=== PATIENT | female | born 1975 | race Caucasian/White ===

== ENCOUNTER 2018-11-07 09:18 | Emergency (ER) | payer OTHER ==
[~2018-11-07] VITALS: Ht 147.3 cm; Wt 68.7 kg
[2018-11-07 09:34] VITALS: BP 135/90
[2018-11-07] MEDS ORDERED: NORMAL SALINE IV SCH (09:51)
--- NOTE | 2018-11-07 09:59 | PHYS DOC ---
Past History Past Medical History: No Pertinent History Past Surgical History: Hysterectomy Alcohol Use: None Drug Use: None Adult General Chief Complaint Chief Complaint: FEVER HPI HPI Patient is a 42 year old female who presents with complaint of fever and headache. Patient states that her symptoms started approximately 10 days ago. States that she has been having recurrent fevers over the past week. Has been taking Tylenol and ibuprofen with no significant relief in symptoms. States that she typically has headaches that come and go along the right side of her head. Was seen 3 days ago at urgent care and started on Augmentin for suspected sinus infection. States that after 3 days of antibiotics, her fevers have continued rates she states she does not feel any better and this continued use of the antibiotics as they were causing her to have worsening stomach discomfort. Denies any abdominal pain at this time. Denies any significant past medical history. Review of Systems Review of Systems Constitutional: Fever, fatigue[] Eyes: Denies change in visual acuity, redness, or eye pain [] HENT: Denies nasal congestion or sore throat [] Respiratory: Occasional shortness of breath, denies cough[] Cardiovascular: Denies chest pain or edema[] GI: Denies abdominal pain, nausea, vomiting, bloody stools or diarrhea [] : Denies dysuria or hematuria [] Musculoskeletal: Denies back pain or joint pain [] Integument: Denies rash or skin lesions [] Neurologic: Headache, denies focal weakness or sensory changes [] All other systems were reviewed and found to be within normal limits, except as documented in this note. Allergies Allergies Allergies Coded Allergies Type Severity Reaction Last Updated Verified No Known Drug Allergies 11/07/18 No Physical Exam Physical Exam Constitutional: Alert, febrile, appears in mild to moderate discomfort. [] HENT: Normocephalic, atraumatic, bilateral external ears normal, oropharynx erythematous, no exudates, nose normal. [] Eyes: PERRLA, EOMI, conjunctiva normal, no discharge. [] Neck: Normal range of motion, no tenderness, supple, no stridor. [] Cardiovascular: Tachycardia, regular rhythm, no murmur [] Lungs & Thorax: Nonlabored respirations, fine rales in the right lower lung field, no wheezes[] Abdomen: Bowel sounds normal, soft, no tenderness, no masses, no pulsatile masses. [] Skin: Warm, dry, no erythema, no rash. [] Back: No tenderness, no CVA tenderness. [] Extremities: No tenderness, no cyanosis, no clubbing, ROM intact, no edema. [] Neurologic: Alert and oriented X 3, normal motor function, normal sensory function, no focal deficits noted. [] Current Patient Data Vital Signs Vital Signs Date Time Temp Pulse Resp B/P (MAP) Pulse Ox O2 Delivery O2 Flow Rate FiO2 11/07/18 09:34 100.6 113 16 94 Room Air Lab Results Laboratory Tests Test 11/07/18 10:02 11/07/18 10:04 11/07/18 10:45 White Blood Count 13.3 x10^3/uL Red Blood Count 4.85 x10^6/uL Hemoglobin 14.1 g/dL Hematocrit 43.0 % Mean Corpuscular Volume 89 fL Mean Corpuscular Hemoglobin 29 pg Mean Corpuscular Hemoglobin Concent 33 g/dL Red Cell Distribution Width 14.3 % Platelet Count 386 x10^3/uL Neutrophils (%) (Auto) 46 % Lymphocytes (%) (Auto) 48 % Monocytes (%) (Auto) 5 % Eosinophils (%) (Auto) 1 % Basophils (%) (Auto) 0 % Neutrophils # (Auto) 6.1 x10^3uL Lymphocytes # (Auto) 6.4 x10^3/uL Monocytes # (Auto) 0.7 x10^3/uL Eosinophils # (Auto) 0.1 x10^3/uL Basophils # (Auto) 0.0 x10^3/uL Segmented Neutrophils % 46 % Band Neutrophils % 7 % Lymphocytes % 31 % Atypical Lymphocytes % (Manual) 7 % Monocytes % 3 % Eosinophils % 0 % Basophils % 3 % Platelet Estimate Adequate Large Platelets Present Heterophil Agglutinins Negative Group A Streptococcus Rapid Negative Sodium Level 136 mmol/L Potassium Level 3.3 mmol/L Chloride Level 102 mmol/L Carbon Dioxide Level 25 mmol/L Anion Gap 9 Blood Urea Nitrogen 9 mg/dL Creatinine 0.9 mg/dL Estimated GFR (Cockcroft-Gault) 69.0 BUN/Creatinine Ratio 10 Glucose Level 109 mg/dL Lactic Acid Level 1.4 mmol/L Calcium Level 8.5 mg/dL Total Bilirubin 0.4 mg/dL Aspartate Amino Transf (AST/SGOT) 102 U/L Alanine Aminotransferase (ALT/SGPT) 126 U/L Alkaline Phosphatase 78 U/L Total Protein 6.9 g/dL Albumin 2.7 g/dL Albumin/Globulin Ratio 0.6 Current Medications Medications (Trade) Dose Ordered Sig/Jillian Route PRN Reason Start Time Stop Time Status Last Admin Dose Admin Sodium Chloride (Normal Saline Flush) 10 ml QSHIFT PRN IV AFTER MEDS AND BLOOD DRAWS 11/07/18 10:00 Sodium Chloride 2,070 ml @ 2,070 mls/hr Q1H IV 11/07/18 09:51 11/07/18 11:50 DC 11/07/18 10:09 Levofloxacin/ Dextrose 150 ml @ 100 mls/hr 1X ONCE IV 11/07/18 12:00 11/07/18 13:29 EKG EKG Not performed[] Radiology/Procedures Radiology/[place] [address] IMAGING REPORT Signed PATIENT: GLORY SINGH ACCOUNT: [id number] : 1975 LOCATION: ER AGE: 42 SEX: F EXAM STATUS: REG ER ORD. PHYSICIAN: BYRON MIDDLETON MD REASON: fever for 1 week PROCEDURE: CHEST PA & LATERAL Chest radiograph 11/07/2018 9:51 AM INDICATION: Fever for one week COMPARISON: None available TECHNIQUE: Frontal and lateral views of the chest are provided. FINDINGS: The cardiomediastinal silhouette is within normal limits. There are no pleural effusions. There is no pulmonary vascular congestion. There is no pneumothorax. Opacity is noted in the right middle lobe which may represent pulmonary infiltrate versus subsegmental atelectasis versus prominent epicardial fat pad. No significant osseous abnormality is identified. Cholecystectomy clips are identified in the right upper quadrant abdomen. IMPRESSION: Opacity is noted in the right middle lobe which may represent pulmonary infiltrate versus subsegmental atelectasis versus prominent epicardial fat pad. Electronically signed by: Olga Coffman MD (11/07/2018 10:27 AM) [id number] DICTATED AND SIGNED BY: OLGA COFFMAN MD DATE: 11/07/18 1027 CC: BYRON MIDDLETON MD; PCP,NO ~ [] Course & Med Decision Making Course & Med Decision Making Pertinent Labs and Imaging studies reviewed. (See chart for details) Patient appears to have signs of pneumonia in the right middle lobe. Patient given IV Levaquin in the emergency department. We'll continue patient on a total of 5 days of Levaquin for treatment. Advised follow-up with primary doctor within the next 4-5 days for reevaluation if symptoms are not improving. I did speak with patient regarding lack of sensitivity of mononucleosis testing within the first week to 10 days. Stated that this test would need to be repeated upon completing antibiotics if symptoms have not resolved. Advised return to emergency department for any worsening symptoms. Patient was understanding and in agreement with treatment plan.[] Dragon Disclaimer Dragon Disclaimer This electronic medical record was generated, in whole or in part, using a voice recognition dictation system. Departure Departure: Impression: Primary Impression: Community acquired pneumonia Disposition: HOME, SELF-CARE Condition: IMPROVED Patient Instructions: Pneumonia, Adult Additional Instructions: Follow-up with your primary doctor in 4-5 days if symptoms are not improving. You may need to have a repeat mononucleosis test if your fevers and fatigue have not resolved. Return to the emergency department for any worsening symptoms. Scripts Levofloxacin (LEVAQUIN) 750 Mg Tablet 1 TAB PO DAILY, #4 TAB Take first dose of medication on the morning of November 08, 2018. Prov: BYRON MIDDLETON MD 11/07/18 Problem Qualifiers Primary Impression: Community acquired pneumonia Laterality: right Lung location: middle lobe of lung Qualified Codes: J18.1 - Lobar pneumonia, unspecified organism BYRON MIDDLETON MD Nov 07, 2018 09:59
[2018-11-07] MEDS ORDERED: 0.9 % SODIUM CHLORIDE 10 ML DISP.SYRIN. IV PRN (10:00)
[2018-11-07 10:26] LABS: BASO % 0 % (0-3); EOS # 0.1 x10^3/uL (0.0-0.7); EOS % 1 % (0-3); HEMOGLOBIN 14.1 g/dL (12.0-15.5); LYMPH # 6.4 x10^3/uL (1.0-4.8); LYMPH % 48 % (24-48); MEAN CORPUSCULAR HEMOGLOBIN 29 pg (25-35); MEAN CORPUSCULAR HGB CONC 33 g/dL (31-37); MEAN CORPUSCULAR VOLUME 89 fL (79-100); MONO # 0.7 x10^3/uL (0.0-1.1); MONO % 5 % (0-9); NEUT # 6.1 x10^3uL (1.8-7.7); NEUT % 46 % (31-73); PLATELET COUNT 386 x10^3/uL (140-400); RED BLOOD COUNT 4.85 x10^6/uL (3.50-5.40); RED CELL DISTRIBUTION WIDTH 14.3 % (11.5-14.5); WHITE BLOOD COUNT 13.3 x10^3/uL (4.0-11.0)
--- NOTE | 2018-11-07 10:30 | RAD ---
Chest radiograph 11/07/2018 9:51 AM INDICATION: Fever for one week COMPARISON: None available TECHNIQUE: Frontal and lateral views of the chest are provided. FINDINGS: The cardiomediastinal silhouette is within normal limits. There are no pleural effusions. There is no pulmonary vascular congestion. There is no pneumothorax. Opacity is noted in the right middle lobe which may represent pulmonary infiltrate versus subsegmental atelectasis versus prominent epicardial fat pad. No significant osseous abnormality is identified. Cholecystectomy clips are identified in the right upper quadrant abdomen. IMPRESSION: Opacity is noted in the right middle lobe which may represent pulmonary infiltrate versus subsegmental atelectasis versus prominent epicardial fat pad. Electronically signed by: Esmer Coffman MD (11/07/2018 10:27 AM) [id number]
[2018-11-07 10:40] LABS: MONONUCLEOSIS PATIENT NEGATIVE (NEGATIVE)
[2018-11-07 11:14] LABS: ALBUMIN 2.7 g/dL (3.4-5.0); ALBUMIN/GLOBULIN RATIO 0.6 (1.0-1.7); CALCIUM 8.5 mg/dL (8.5-10.1); CREATININE 0.9 mg/dL (0.6-1.0); POTASSIUM 3.3 mmol/L (3.5-5.1); TOTAL BILIRUBIN 0.4 mg/dL (0.2-1.0); TOTAL PROTEIN 6.9 g/dL (6.4-8.2)
[2018-11-07 12:04] LABS: % ATYL 7 % (0-0); % BANDS 7 % (0-9); % BASOS 3 % (0-3); % EOS 0 % (0-5); % LYMPHS 31 % (24-48); % MONOS 3 % (0-10); % SEGS 46 % (35-66); PLT ESTIMATE ADEQUATE (ADEQUATE)
[2018-11-07] MEDS ORDERED: LEVO750T31 PO (12:27)
== END 2018-11-07 13:08 | disposition home or self-care (01) ==
LOC: ER 09:18
DX: J18.1 Lobar pneumonia, unspecified organism (principal)
CPT/HCPCS: 36415; 71046; 80053; 83605; 85007; 85025; 86308; 87040; 87070; 87880; 99285-25; J7030